=== PATIENT | female | born 1960 | race Caucasian/White ===

== ENCOUNTER 2017-03-22 14:35 | Inpatient (IN) | payer OTHER ==
[~2017-03-22] VITALS: Ht 160 cm; Wt 127.0 kg
[~2017-03-22 14:35] MED LIST: HUMALOG MIX 75/10 ML SQ; HUMULIN N100 U/ML SQ; METFORMIN HCL1000 MG PO; MOTRIN800 MG PO; PENICILLIN V P500 MG PO; PRILOSEC10 MG PO; PROZAC20 MG PO; ZOCOR5 MG PO
[2017-04-14] MEDS ORDERED: Lantus 1000 UNITS/10 SUBCUTANEO (09:41)
[2017-04-14] MEDS ORDERED: GABAPENTIN800 MG PO (09:41)
[2017-04-14] MEDS ORDERED: PROAIR HFA8.5 GM IH (09:41)
[2017-04-14] MEDS ORDERED: NOVOLOG100 UNIT/1 SUBCUTANEO (09:45)
[2017-04-14] MEDS ORDERED: TRAMADOL HCL50 MG PO (09:49)
== END 2017-04-14 12:01 | disposition left against medical advice (07) | DRG 74 ==
LOC: ER 14:35 → MEDJ 19:29 → SEC-K 19:29 → MEDJ 20:38
PROC: 3E0F7GC Introduction of Other Therapeutic Substance into Respiratory Tract, Via Natural or Artificial Opening (ICD-10-PCS; principal; 2017-03-22)
PROC: 4A033R1 Measurement of Arterial Saturation, Peripheral, Percutaneous Approach (ICD-10-PCS; 2017-03-22)
PROC: B44HZZZ Ultrasonography of Bilateral Lower Extremity Arteries (ICD-10-PCS; 2017-03-22)
PROC: BQ3HZZZ Magnetic Resonance Imaging (MRI) of Left Ankle (ICD-10-PCS; 2017-03-24)
PROC: B54MZZZ Ultrasonography of Right Upper Extremity Veins (ICD-10-PCS; 2017-04-04)
DX: E11.42 Type 2 diabetes mellitus with diabetic polyneuropathy (principal); L03.116 Cellulitis of left lower limb; L97.528 Non-pressure chronic ulcer of other part of left foot with other specified severity; J45.31 Mild persistent asthma with (acute) exacerbation; L02.612 Cutaneous abscess of left foot; M86.672 Other chronic osteomyelitis, left ankle and foot; E66.01 Morbid (severe) obesity due to excess calories; E11.621 Type 2 diabetes mellitus with foot ulcer; E11.65 Type 2 diabetes mellitus with hyperglycemia; B96.1 Klebsiella pneumoniae [K. pneumoniae] as the cause of diseases classified elsewhere; B96.4 Proteus (mirabilis) (morganii) as the cause of diseases classified elsewhere; Z16.24 Resistance to multiple antibiotics; E11.610 Type 2 diabetes mellitus with diabetic neuropathic arthropathy; E11.69 Type 2 diabetes mellitus with other specified complication; E03.8 Other specified hypothyroidism

== ENCOUNTER 2018-12-28 11:56 | Emergency (ER) | payer OTHER ==
[~2018-12-28] VITALS: Ht 167.6 cm; Wt 141.5 kg
[~2018-12-28 11:56] MED LIST changes: +GABAPENTIN800 MG PO; +Lantus 1000 UNITS/10 SUBCUTANEO; +NOVOLOG100 UNIT/1 SUBCUTANEO; +PROAIR HFA8.5 GM IH; +TRAMADOL HCL50 MG PO
== END 2018-12-28 12:58 | disposition home or self-care (01) ==
LOC: ER 11:56
DX: L29.8 Other pruritus (principal); S30.81 Abrasion of abdomen, lower back, pelvis and external genitals; W45.8XXS Other foreign body or object entering through skin, sequela